=== PATIENT | male | born 1950 | race Caucasian/White ===

== ENCOUNTER 2025-05-28 10:15 | Outpatient (AMB) | payer BC, SELFPAY ==
--- NOTE | 2025-05-28 10:19 | MHC.OFFVIS ---
Vital Signs 05/28/25 10:22 Height 5 ft 4 in Weight 139 lb 6 oz BMI 23.9 BP 134/68 Blood Pressure Location Rt brachial Position Sitting Pulse 66 Pulse Source Pulse Oximeter Pulse Oximetry (%) 97 Oxygen Delivery Method Room Air Intake Visit Reasons: E-PATIENT FINANCIAL SPECIALIST: Tremors Intake Note: Tremors Account Manager Education Required: No Accompanied by: Spouse Allergies Seasonal Allergies Allergy (Verified 05/21/25 10:55) Wheezing HPI Comments Details: 74y/o male comes for evaluation of tremors and cognitive changes . He also has anxiety - for many years and is worsening in the past few years. He is on sertraline for 2 years now. No panic attacks . Tremors- hands - with posture . Anxiety worsens it . He is able to manage his ADLs. No voice tremors Cognition- his noticed problems 2 years ago and worse in the past few mths .He has trouble with dates , short term recall , difficulty multitasking , misplaces things, forgets where the things are in his house etc. He was adopted so does not know his family history . 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 History of pneumonia Chest pain Bronchitis Abnormal chest x-ray Surgical History S/P colectomy H/O arthroscopic knee surgery S/P cholecystectomy Family History Son DVT (deep venous thrombosis) Son Hypothyroidism Social History Alcohol intake: current Patient Tobacco Use Status: Former Tobacco user Tobacco use type: Cigarette Cigarette Packs Per Day: 0 Cigarettes Per Day: 0.8 Years Smoked: packs/day for 1.9 years Smoked in Last 30 Days: No Use of substances other than those prescribed or required for medical reasons: No Physical Exam Vital Signs: Last Vital Signs Pulse 66 05/28/25 10:22 BP 134/68 05/28/25 10:22 Pulse Ox 97 05/28/25 10:22 Oxygen Delivery Method Room Air 05/28/25 10:22 BMI result Body Mass Index 23.9 Const General: cooperative, healthy appearing, comfortable and anxious Nutritional Appearance: average body habitus Orientation/consciousness: patient oriented x3 Eyes Pupils: Equal, round and reactive pupils present Neck Neck: Yes no meningeal signs Neuro General: patient oriented x3, gait normal, moves all extremities, no meningeal signs and no focal motor deficits Cranial nerves: Yes Equal, round and reactive pupils present, Yes Bilaterally intact EOM present, Yes Nystagmus not present, Yes Normal facial strength present, Yes Midline tongue present, Yes Symmetric palate elevation present and Yes Ability to bilaterally elevate shoulders present Cognition (Neuro): normal cognition Gait exam (Neuro): Normal gait present Motor exam (neuro): 5/5 motor strength present throughout and Normal motor muscle tone present throughout Deep tendon reflexes (DTR's): Right triceps reflex intensity grade: 2+, Left triceps reflex intensity grade: 2+, Rt Biceps (C5, C6): 2+, Left biceps reflex intensity grade: 2+, Right brachioradialis reflex intensity grade: 2+, Left brachioradialis reflex intensity grade: 2+, Right patellar reflex intensity grade: 2+ and Left patellar reflex intensity grade: 2+ Coordination: [id number] test normal Orientation What is the (year) (season) (date) (day) (month)?: year, season, date, day and month Where are we (state) (county) (town or city) (hospital) (floor)?: state, county, town or city, hospital/clinic and floor Registration Name of 3 unrelated objects clearly and slowly, then ask patient to repeat all 3 of them. (1st repeat determines score. Make sure they can repeat all three): object 1, object 2 and object 3 Attention & Calculation (CHOOSE ONE) Spell WORLD backwards (DLROW): 5 letters Recall Ask patient to repeat the 3 items from question #3.: object 1 and object 2 Language Show patient a wristwatch & ask what it is. Repeat for pencil.: watch and pencil Ask the patient to repeat the phrase 'No ifs, ands, or buts' after you.: correct Ask the patient to 'take a piece of paper with their right hand' 'fold paper in half' 'place paper on floor': take paper in right hand, fold paper in half and place paper on floor Print the sentence 'CLOSE YOUR EYES' on a piece. If patient actually closes eyes then score.: followed written direction Give patient a blank piece of paper & ask to write a sentence. Score if it contains a noun & verb.: sentence contains subject and verb Score Score: 28 Assessment & Plan Assessment & Plan (1) Cognitive change: Comment: likely related to anxiety MMSE 29/30 Code(s): R41.89 - Other symptoms and signs involving cognitive functions and awareness Category: Medical (2) Coarse tremors: Comment: likely exaggerated physiological tremors Code(s): G25.2 - Other specified forms of tremor Category: Medical Plan MRI brain to r/o structural lesions I will trial him on Buspar 5 mg bid will consider beta blockers next visit Labs form PCP wear hearing aides consistently Orders: Orders MR head/brain wo con Today R41.3 - Other amnesia Medications: New buspirone 5 mg PO BID 60 tabs 6RF Coding Level of Care Code New Pt Level 4 (18662) Complex EM visit Add On G2211 Diagnoses Cognitive change R41.89 Coarse tremors G25.2
[2025-05-28 10:22] VITALS: BP 134/68; PULSE 66; O2SAT 97; BMI 23.9
--- OUTSIDE RECORDS SUMMARY | 2025-05-28 12:37 | XMS_ITS | Clinical Summary ---
Author Organization [facility] Address [address] [place] [phone] Phone Care Team Providers Care Cartridge Loader Name Role Phone Andre Gross MD Primary Care Provider [phone] Allergies Active Allergy Reactions Criticality Noted Date Comments Other Wheezing 01/06/2010 Seasonal allergies Medications fluticasone propionate (FLONASE) 50 mcg/actuation nasal spray 2 Sprays by Nasal route daily. 4 Active fluticasone-juanito meterol (ADVAIR DISKUS) 250-50 mcg/dose diskus inhaler Inhale 1 Puff into the lungs 2 times daily. 4 Active MULTIVITAMIN ORAL 1 po qd Active omega-3 acid ethyl esters (LOVAZA) 1 gram capsule Take by mouth daily. Active acetaminophen (TYLENOL) 500 mg tablet Take 2 tablets (1,000 mg total) by mouth every 6 (six) hours if needed for mild pain. 60 tablet 5 Active ibuprofen (ADVIL,MOTRIN) 600 mg tablet Take 1 tablet (600 mg total) by mouth every 8 (eight) hours if needed for mild pain. 60 tablet 5 Active oxyCODONE (ROXICODONE) 5 mg immediate release tabletIndicatio ns:Right inguinal hernia Take 1 tablet (5 mg total) by mouth every 6 (six) hours if needed for severe pain. Max Daily Amount: 20 mg 18 tablet 5 Active montelukast (SINGULAIR) 10 mg tablet TAKE 1 TABLET BY MOUTH AT BEDTIME 90 tablet 1 5 Active donepeziL (ARICEPT) 5 mg tablet TAKE 1 TABLET BY MOUTH AT BEDTIME 90 tablet 5 Active cetirizine (ZyrTEC) 10 mg tablet Take 1 tablet (10 mg total) by mouth 1 (one) time each day. 90 tablet 5 Active amLODIPine (NORVASC) 5 mg tablet Take 1 tablet (5 mg total) by mouth 1 (one) time each day. 90 tablet 1 5 Active sertraline (ZOLOFT) 100 mg tablet Take 1 tablet (100 mg total) by mouth 1 (one) time each day. 30 tablet 1 5 Active atorvastatin (LIPITOR) 10 mg tablet Take 1 tablet (10 mg total) by mouth 1 (one) time each day. 90 tablet 1 5 Active amLODIPine (NORVASC) 5 mg tablet Take 1 Tablet by mouth daily. 4 05/08/20 25 Discontinu ed(Reorder ) sertraline (ZOLOFT) 100 mg tablet TAKE 1 TABLET BY MOUTH 1 TIME EACH DAY. 30 tablet 1 5 05/08/20 25 Discontinu ed(Reorder ) atorvastatin (LIPITOR) 10 mg tablet TAKE 1 TABLET BY MOUTH DAILY 90 tablet 1 5 05/08/20 25 Discontinu ed(Reorder ) Active Problems Problem Noted Date Diagnosed Date Right inguinal hernia 10/01/2024 Positive colorectal cancer screening using Colog uard test 06/16/2023 Overview (07/25/2024): (-) colonoscopy 2022, repeat recommended by GI in 5 years, 2027 Memory deficit 11/04/2022 Overview (07/25/2024): see note 11/03/22, initiated treatment for presumed Alzheimer's disease Decreased hearing of right ear 08/01/2021 Tinnitus aurium, right 08/01/2021 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 Cordova Essential hypertension 08/26/2016 Prediabetes 06/28/2016 Assessment & Plan (11/20/2024 8:00 AM EDT): Orders: Hemoglobin A1c; Future Hyperglycemia 02/26/2016 Bronchitis 10/20/2009 Abnormal CXR 06/08/2009 Overview (07/25/2024): S/p biopsy, r/o TB, sarcoidosis GERD (gastroesophageal reflux disease) 7 Overview (07/25/2024): Failed h2 abdias, back on PPI 12/2018 Mixed hyperlipidemia 05/08/2007 External hemorrhoids 05/04/2007 Overview (07/25/2024): IMO update Diverticulitis of colon without hemorrhage 07/07 Overview (07/25/2024): noted at colonoscopy .3.06. Surgical resection 2011. Spermatocele 03/29/2006 Chest pain, unspecified 09/01/2005 Overview (07/25/2024): ETT (-) 02/05 Encounters Date Type Department Care Team Description 05/08/2025 8:45 AM EDT Office Visit Adult Medicine [facility] [place] [address] [place] [phone] Andre Gross MD Elevated PSA (Primary Dx); Generalized anxiety disorder; Memory deficit; Hyperglycemia; Essential hypertension; Low energy; Lack of interest 05/06/2025 Telephone Adult Medicine [facility] [place] [address] [place] [address] Andre Gross MD from Last 3 Months Immunizations Name Administration Dates Next Due Influenza Quadravalent, MDCK , 0.5ml, preservative free (Flucelvax) 6mo and older 10/31/2019 Influenza trivalent, 0.5mL ( Fluad) 65yo and older 06/08/2022,05/21/2020,06/11/2018 Influenza trivalent, 0.5mL, preservative free (Fluarix; FluLaval; Fluzone) ages 6mo and older (Afluria) 3 years and older 08/25/2016,06/30/2010,07/06/2009 Influenza, Unspecified 1952 Moderna SARS-CoV-2 COVID-19, mRNA, LNP-S, preservative free 07/14/2021 PPD Test 06/04/2009 Td Tetanus diptheria (Tdvax) 7yo and older 08/11 Tdap Tetanus diptheria acell ular pertussis (Boostrix; Adacel) 7yo and older 03/28/2012 Zoster Live 10/02/2015 Surgical History Surgery Date Site/Laterality Comments KNEE ARTHROSCOPY W/ MENISCAL REPAIR 2001 PROCEDURE: [place] ARTHROSCOPY KNEE W/MENISCUS RPR MEDIAL/LATERAL; COMMENT: unknown knee surg COLONOSCOPY 07/07/2006 PROCEDURE: HISTORICAL COLONOSCOPY; COMMENT: diminutive tubular adenoma x 1. CHOLECYSTECTOMY 01/2010 PROCEDURE: LAPAROSCOPIC CHOLECYSTECT COLONOSCOPY 08/08/2011 PROCEDURE: HISTORICAL COLONOSCOPY; COMMENT: no polyps OTHER SURGICAL HISTORY 06/10/2012 PROCEDURE: [place] COLECTOMY PARTIAL W/ANASTOMOSIS; COMMENT: colon resection and temp colostomy for diverticulitis. COLONOSCOPY 08/08/2016 PROCEDURE: HISTORICAL COLONOSCOPY; COMMENT: 5 mm polyp at 20 cm: Nonneoplastic inflammation. OTHER SURGICAL HISTORY PROCEDURE: HISTORICAL CA BASAL CELL; COMMENT: BCC 10/19 right gnosticism (nodular) Medical History Medical History Date Comments Hematuria DX:Hematuria Closed fracture of unspecifi ed part of tibia 07/15/2002 DX:Closed fracture of unspec ified part of tibia; COMMENT: sports injury (hockey) Chest pain, unspecified DX:Chest pain, unspecified Esophageal reflux 1990 DX:Esophageal reflux; COMMENT: H pylori (+) fully treated Spermatocele 03/29/2006 DX:Spermatocele Diverticulosis of colon (wit hout mention of hemorrhage) 07/07/2006 DX:Diverticulosis of colon ( without mention of hemorrhage); COMMENT: noted at colonoscopy 06 Benign neoplasm of colon 07/07/2006 DX:Joshua gn neoplasm of colon; COMMENT: diminutive sigmoid colon polyp at colonoscopy .11.07 Personal history of peptic u lcer disease 09/01/2005 DX:Personal history of pepti c ulcer disease; COMMENT: h pylori (+) Personal history of colonic polyps 01/03/2007 DX:Personal history of colonic polyps External hemorrhoids without mention of complication 05/04/2007 DX:External hemorrhoids with out mention of complication Mixed hyperlipidemia 05/08/2007 DX:Mixed hy perlipidemia Abnormal CXR 06/08/2009 DX:Abnormal CXR Hyperglycemia 02/26/2016 DX:Hyperglycemia History of basal cell carcin court of skin 10/09/2014 DX:History of basal cell car cinoma of skin; COMMENT: BCC 10/19 right gnosticism (nodular) Prediabetes 06/28/2016 DX:Prediabetes Essential hypertension 08/26/2016 DX:Essent ial hypertension Elevated PSA 04/16/2018 DX:Elevated PSA; COMMENT: Follows with Dr. Cordova GERD (gastroesophageal reflu x disease) 09/03/2007 DX:GERD (gastroesophageal re flux disease); COMMENT: Failed h2 abdias, back on PPI 12/2018 History of actinic keratoses 06/12/2020 DX: History of actinic keratoses Malignant neoplasm of skin of face DX:Malignant neoplasm of skin of face Change in weight DX:Change in we ight Family History Medical History Relation Name Comments Other: DVT Son 1 no hyper-coagul atory state, after extensive eval. Other: hypothyroidism Son 2 Hashim kristie's disease Relation Name Status Comments Son 1 Son 2 Social History Tobacco Use Types Packs/Day Years Used Date Smoking Tobacco: Former Cigarettes 0.8 1.9 0 1974 - 09/04/1976 Smokeless Tobacco: Never Tobacco Cessation:Counseling Given: Not Answered Alcohol Use Standard Drinks/Week Comments Yes 0 (1 standard drink = 0.6 oz pur e alcohol) Interpersonal Safety Answer Date Record ed Physical Abuse 12/12/2024 Verbal Abuse 12/12/2024 Sex and Gender Information Value Date Recorded Sex Assigned at Male 10/21/2024 2:23 PM EST Legal Sex Male 9:21 AM EST Gender Identity Male 10/21/2024 2:23 PM EST Sexual Orientation Straight 10/21/2024 2: 23 PM EST Obstetrics History Last Filed Vital Signs Vital Sign Reading Time Taken Comments Blood Pressure 133/55 05/08/2025 8:40 AM EDT Pulse 60 05/08/2025 8:40 AM EDT Temperature 36.5 C (97.7 F) 05/08/2025 8:39 AM EDT Respiratory Rate 15 05/08/2025 8:39 AM EDT Oxygen Saturation 94% 12/12/2024 4:40 PM EDT Inhaled Oxygen Concentration - - Weight 64 kg (141 lb) 05/08/2025 8:39 AM EDT Height 162.6 cm (5' 4 ) 12/25/2024 9:31 AM EDT Body Mass Index 24.2 12/25/2024 9:31 AM EDT Plan of Treatment Upcoming Encounters Date Type Department Care Team (Late st Contact Info) Description 06/04/2025 9:15 AM EDT Office Visit General Surgery - [place] [address] [place] [phone] Kolby Brown, [address] [place] [address] [place] [phone] 08/14/2025 3:00 PM EST Office Visit Adult Medicine [facility] [place] [address] [place] [phone] Andre Gross MD [address] [place] [address] Health Maintenance Due Date Last Done Comments Pneumococcal Vaccine: 50+ Years (1 of 1 - PCV) 2002 Zoster Vaccines (1 of 2) 11/27/2015 10/02/2015 DTaP,Tdap,and Td Vaccines (3 - Td or Tdap) 03/28/2022 03/28/2012, 08/11/2003 Abdominal Aortic Aneurysm (AAA) Screen 08/13/2022 Social Influencers of Health Screening 08/13/2022 COVID-19 Vaccine ( - season) 2025 07/14/2021, 11/01/2020, 10/04/2020 Influenza Vaccine (#1) 2025 , 06/08/2022, 07/14/2021, Additional history exists Medicare Annual Wellness Visit 11/19/2025 11/19/2024 Falls Risk Assessment 12/12/2025 12/12/2024, 025 Hypertension/CHF/CAD Annual BMP Blood Test 05/12/2026 05/12/2025, 07/14/2023 RSV Immunization Adult Patients (1 - 1-dose 75+ series) 2027 Cholesterol Screening (Lipid Panel) 05/12/2030 05/12/2025, 09/19/2022 Colorectal Cancer Screening: Colonoscopy 06/15/2033 06/15/2023 Hepatitis C Screening Completed 10/03/2015 Depression Screening Completed 11/19/2024 HIB Vaccines Aged Out No longer eligi ble based on patient's age to complete this topic HPV Vaccines Aged Out No longer eligi ble based on patient's age to complete this topic Hepatitis A Vaccines Aged Out No long er eligible based on patient's age to complete this topic Hepatitis B Vaccines Aged Out No long er eligible based on patient's age to complete this topic IPV Vaccines Aged Out No longer eligi ble based on patient's age to complete this topic MMR Vaccines Aged Out No longer eligi ble based on patient's age to complete this topic Meningococcal ACWY Vaccine Aged Out N o longer eligible based on patient's age to complete this topic Meningococcal B Vaccine Aged Out No l onger eligible based on patient's age to complete this topic RSV Immunization Patients Under 20 months Aged Out No longer eligible based on patient's age to complete this topic Varicella Vaccines Aged Out No longer eligible based on patient's age to complete this topic Medical Devices Implanted Type Area Rod Filler Device Identifier Shelf Expiration Date Model / Serial / Lot Mesh 3dmax Lght Lg 4.1x6.2 R 4.1x6.2in - [id number] - [id number] Implanted:Qty: 1 on 12/12/2024 by Kolby Brown, DO at [facility] Surgical Mesh Sling Implants Right: Abdomen CR BARD - DAVOL DIV 03/31/2029 [id number] / [id number] / [id number] Procedures Procedure Name Priority Date/Time Associated Diagnosis Comments TRIIODOTHYRONINE FREE Routine 05/12/2025 8:24 AM EDT Tremor Alzheimer's dementia of other onset, with anxiety, unspecified dementia severity (CMS/HCC V24, [facility] V28) FREE THYROXINE WITH REFLEX TO FREE TRIIODOTHYRONINE Routine 05/12/2025 8:24 AM EDT Tremor Alzheimer's dementia of other onset, with anxiety, unspecified dementia severity (CMS/HCC V24, CMS/HCC V28) CBC WITH AUTO DIFFERENTIAL Routine 05/12/2025 8:24 AM EDT Tremor Alzheimer's dementia of other onset, with anxiety, unspecified dementia severity (CMS/HCC V24, CMS/HCC V28) LIPID PANEL WITH REFLEX TO DIRECT LDL Routine 05/12/2025 8:24 AM EDT Mixed hyperlipidemia THYROID STIMULATING HORMONE WITH REFLEX TO FREE T4 AND FREE T3 Routine 05/12/2025 8:24 AM EDT Tremor Alzheimer's dementia of other onset, with anxiety, unspecified dementia severity (CMS/HCC V24, CMS/HCC V28) COMPREHENSIVE METABOLIC PANEL Routine 05/12/2025 8:24 AM EDT Tremor Alzheimer's dementia of other onset, with anxiety, unspecified dementia severity (CMS/HCC V24, CMS/HCC V28) CBC AND DIFFERENTIAL Routine 05/12/2025 8:24 AM EDT Tremor Alzheimer's dementia of other onset, with anxiety, unspecified dementia severity (CMS/HCC V24, CMS/HCC V28) HEMOGLOBIN A1C Routine 05/12/2025 8:24 AM EDT Prediabetes HM COLONOSCOPY Routine 06/15/2023 HEPATITIS C SCREENING Routine 10/03/2015 from Last 3 Months or Most Recently Relevant to Health Maintenance Results * (ABNORMAL) Thyroid stimulating hormone with reflex to free t4 and free t3 (05/12/2025 8:24 AM EDT) TSH 6.63(H) 0.40 - 4.00 mcIU/mL LAB CHEMISTRY METHOD 05/12/2025 11:14 AM EDT [facility] Blood Venous blood specimen / Unknown Venipuncture / Unknown 05/12/2025 8:24 AM EDT 05/12/2025 8:24 AM EDT us Andre Gross MD LAB BLOOD ORDERABLES Final Resul t Performing Organization Address [facility]/ZIP Co de Phone Number [facility] [address] [place] [address], [place] [phone] * Free thyroxine with reflex to free triiodothyronine (05/12/2025 8:24 AM EDT) Free T4 1.04 0.70 - 1.80 ng/dL LAB CHEMISTRY METHOD 05/12/2025 11:34 AM EDT [facility] Blood Venous blood specimen / Unknown Venipuncture / Unknown 05/12/2025 8:24 AM EDT 05/12/2025 8:24 AM EDT us Andre Gross MD LAB BLOOD ORDERABLES Final Resul t Performing Organization Address [facility] Co de Phone Number [facility] [address] [place] [address], [place] [phone] * (ABNORMAL) Lipid panel with reflex to direct LDL (05/12/2025 8:24 AM EDT) Cholesterol 220(H) 0 - 200 mg/dL LAB CHEMISTRY METHOD 05/12/2025 10:42 AM EDT [facility] Triglycerides 106 0 - 150 mg/dL LAB CHEMISTRY METHOD 05/12/2025 10:42 AM EDT [facility] HDL 42 >=40 mg/dL LAB CHEMISTRY METHOD 05/12/2025 10:42 AM EDT [facility] LDL Calculated 157(H) 0 - 100 mg/dL LAB CHEMISTRY METHOD 05/12/2025 10:42 AM EDT [facility] Comment:Estimated LDL Calcul ated using equation: Total cholesterol - HDL cholesterol - (Triglycerides/5) VLDL Cholesterol Zackary 21.2 mg/dL LAB CHEMISTRY METHOD 05/12/2025 10:[facility] Non HDL Chol. (LDL+VLDL) 178(H) <145 mg/dL LAB CHEMISTRY METHOD 05/12/2025 10:42 AM [facility] Chol/HDL Ratio 5.2(H) 0.0 - 4.4 LAB CHEMISTRY METHOD 05/12/2025 10:42 AM [facility] Blood Venous blood specimen / Unknown Venipuncture / Unknown 05/12/2025 8:24 AM EDT 05/12/2025 8:24 AM EDT us Andre Gross MD LAB BLOOD ORDERABLES Final Resul t [facility] [address] [place] [address], [place] [phone] * (ABNORMAL) CBC auto differential (05/12/2025 8:24 AM EDT) WBC 5.2 4.8 - 10.8 K/mcL LAB HEMETOLOGY METHOD 05/12/2025 10:24 AM [facility] RBC 4.50 4.50 - 5.50 M/mcL LAB HEMETOLOGY METHOD 05/12/2025 10:24 AM [facility] Hemoglobin 14.5 13.5 - 17.5 g/dL LAB HEMETOLOGY METHOD 05/12/2025 10:24 AM [facility] Hematocrit 43.2 42.0 - 54.0 % LAB HEMETOLOGY METHOD 05/12/2025 10:24 AM [facility] MCV 96.9 79.0 - 98.0 FL LAB HEMETOLOGY METHOD 05/12/2025 10:24 AM [facility] MCH 32.5(H) 27.0 - 32.0 pcg LAB HEMETOLOGY METHOD 05/12/2025 10:24 AM [facility] MCHC 33.6 32.0 - 37.0 g/dL LAB HEMETOLOGY METHOD 05/12/2025 10:24 AM [facility] RDW 12.7 11.0 - 15.0 % LAB HEMETOLOGY METHOD 05/12/2025 10:24 AM [facility] Platelets 230 130 - 400 K/mcL LAB HEMETOLOGY METHOD 05/12/2025 10:24 AM [facility] MPV 10.2 7.0 - 11.0 FL LAB HEMETOLOGY METHOD 05/12/2025 10:24 AM [facility] NRBC 0.0 <1.0 % LAB HEMETOLOGY METHOD 05/12/2025 10:24 AM [facility] NRBC Absolute 0.00 <0.10 K/mcL LAB HEMETOLOGY METHOD 05/12/2025 10:24 AM [facility] Neutrophils Relative 55.8 % LAB HEMETOLOGY METHOD 05/12/2025 10:24 AM [facility] Lymphocytes Relative 25.7 % LAB HEMETOLOGY METHOD 05/12/2025 10:24 AM [facility] Monocytes Relative 11.3 % LAB HEMETOLOGY METHOD 05/12/2025 10:24 AM [facility] Eosinophils Relative 5.6 % LAB HEMETOLOGY METHOD 05/12/2025 10:24 AM [facility] Basophils Relative 1.0 % LAB HEMETOLOGY METHOD 05/12/2025 10:24 AM [facility] Immature Granulocytes Relative 0.6 % LAB HEMETOLOGY METHOD 05/12/2025 10:24 AM [facility] Neutrophils Absolute 2.91 1.50 - 7.00 K/mcL LAB HEMETOLOGY METHOD 05/12/2025 10:24 AM [facility] Lymphocytes Absolute 1.34 1.00 - 5.00 K/mcL LAB HEMETOLOGY METHOD 05/12/2025 10:24 AM EDT [facility] Monocytes Absolute 0.59 0.20 - 1.00 K/[facility] LAB HEMETOLOGY METHOD 05/12/2025 10:24 AM EDT [facility] Eosinophils Absolute 0.29 0.00 - 0.50 K/[facility] LAB HEMETOLOGY METHOD 05/12/2025 10:24 AM EDT [facility] Basophils Absolute 0.05 0.00 - 0.20 K/[facility] LAB HEMETOLOGY METHOD 05/12/2025 10:24 AM EDT [facility] Immature Granulocytes Absolute 0.03 0.00 - 0.03 K/[facility] LAB HEMETOLOGY METHOD 05/12/2025 10:24 AM EDT [facility] Blood Venous blood specimen / Unknown Venipuncture / Unknown 05/12/2025 8:24 AM EDT 05/12/2025 8:24 AM EDT us Andre Gross MD LAB BLOOD ORDERABLES Final Resul t Performing Organization Address City/[facility]/ZIP Co de Phone Number [facility] [address] [place] [address], [place] [phone] * Triiodothyronine free (05/12/2025 8:24 AM EDT) T3, Free 329 230 - 420 pcg/dL LAB CHEMISTRY METHOD 05/12/2025 12:35 PM EDT [facility] Blood Venous blood specimen / Unknown Venipuncture / Unknown 05/12/2025 8:24 AM EDT 05/12/2025 8:24 AM EDT us Andre Gross MD LAB BLOOD ORDERABLES Final Resul t [facility] [address] [place] [address], [place] [phone] * Hemoglobin A1c (05/12/2025 8:24 AM EDT) Pathologist [facility] Hemoglobin A1C 6.4 <6.5 % LAB CHEMISTRY METHOD 05/12/2025 12:27 PM EDT [facility] Mean Bld Glu Estim. 137 mg/dL LAB CHEMISTRY METHOD 05/12/2025 12:27 PM EDT [facility] Blood Venous blood specimen / Unknown Venipuncture / Unknown 05/12/2025 8:24 AM EDT 05/12/2025 8:24 AM EDT Andre Gross MD LAB BLOOD ORDERABLES Final Resul t [facility] [address] [place] [address], * (ABNORMAL) Comprehensive metabolic panel (05/12/2025 8:24 AM EDT) [facility] Sodium 139 133 - 145 mmol/L LAB CHEMISTRY METHOD 05/12/2025 10:42 AM [facility] Potassium 4.2 3.5 - 5.5 mmol/L LAB CHEMISTRY METHOD 05/12/2025 10:42 AM [facility] Chloride 104 96 - 110 mmol/L LAB CHEMISTRY METHOD 05/12/2025 10:42 AM [facility] CO2 29 21 - 32 mmol/L LAB CHEMISTRY METHOD 05/12/2025 10:42 AM [facility] Anion Gap 6 3 - 11 LAB CHEMISTRY METHOD 05/12/2025 10:42 AM [facility] Glucose 144(H) 70 - 100 mg/dL LAB CHEMISTRY METHOD 05/12/2025 10:42 AM [facility] BUN 15 5 - 25 mg/dL LAB CHEMISTRY METHOD 05/12/2025 10:42 AM [facility] Creatinine 0.91 0.70 - 1.30 mg/dL LAB CHEMISTRY METHOD 05/12/2025 10:42 AM [facility] eGFR 90 >=60 mL/min/1. 73m2 LAB CHEMISTRY METHOD 05/12/2025 10:42 AM [facility] Comment:Calculation based on the Chronic Kidney Disease Epidemiology Collaboration (CKD-EPI) equation refit without adjustment for race. BUN/Creatinine Ratio 16.5 LAB CHEMISTRY METHOD 05/12/2025 10:42 AM [facility] Calcium 9.2 8.5 - 10.5 mg/dL LAB CHEMISTRY METHOD 05/12/2025 10:42 AM [facility] AST (SGOT) 18 10 - 42 unit/L LAB CHEMISTRY METHOD 05/12/2025 10:42 AM [facility] ALT (SGPT) 27 10 - 60 unit/L LAB CHEMISTRY METHOD 05/12/2025 10:42 AM [facility] Alkaline Phosphatase 81 42 - 121 unit/L LAB CHEMISTRY METHOD 05/12/2025 10:42 AM [facility] Total Protein 6.6 6.0 - 8.0 g/dL LAB CHEMISTRY METHOD 05/12/2025 10:42 AM [facility] Albumin 3.9 3.2 - 5.0 g/dL LAB CHEMISTRY METHOD 05/12/2025 10:42 AM [facility] Total Bilirubin 0.5 0.0 - 1.4 mg/dL LAB CHEMISTRY METHOD 05/12/2025 10:42 AM [facility] Blood Venous blood specimen / Unknown Venipuncture / Unknown 05/12/2025 8:24 AM EDT 05/12/2025 8:24 AM EDT us Andre Gross MD LAB BLOOD ORDERABLES Final Resul t [facility] [address] [place] [address], [place] [phone] * Colonoscopy (06/15/2023) Pathologist [facility] Colonoscopy abstracted, no interpretation Anatomical Region Laterality Modality Other Historical Provider HEALTH MAINTENANCE Final Result * Hepatitis C Screening (10/03/2015) Pathologist [facility] Hepatitis C Screening abstracted Historical Provider HEALTH MAINTENANCE Final Result from Last 3 Months or Most Recently Relevant to Health Maintenance Insurance [employer] - [place] MEDICARE ADVANTAGE Advance Directives * Full Code - Default (Latest Code Status on File) Date Activated Date Inactivated Comments 12/12/2024 10:07 AM 12/12/2024 8:43 PM This is ord er is used when code status has not been discussed with the patient, or code status is otherwise unknown/unconfirmed To update the patient's code status, place a code status order. Do not modify or discontinue any currently active code status orders. Care Teams Cartridge Loader Relationship Specialty Start Date End Date Andre Gross MD [address] [place] [address] [place] [address] PCP - General 05/13/00
--- OUTSIDE RECORDS SUMMARY | 2025-05-28 12:37 | XMS_ITS | Encounter Summary ---
Author Organization [facility] Address [address] [place] [address] Care Team Providers Care Java J2Ee Software Engineer Name Role Phone Andre Gross MD Primary Care Provider [phone] Encounter Details Date Type Department Care Team (Late Contact Info) Description 01/21/2025 Lab Requisition [facility] - Main Lab [address] [facility] [place] [address] Bryson Ramirez MD [address] [facility] [address] [place] [phone] Elevated prostate specific antigen (PSA) Social History Tobacco Use Types Packs/Day Years Used Date Smoking Tobacco: Former Cigarettes 0.8 1.9 0 1974 - 09/04/1976 Smokeless Tobacco: Never Alcohol Use Standard Drinks/Week Comments Yes 0 [...] Orientation Straight 10/21/2024 2: 23 PM EST documented as of this encounter Plan of Treatment Upcoming Encounters Date Type Department Care Team (Late Contact Info) Description 06/04/2025 9:15 AM EDT Office Visit General Surgery - [place] [address] [place] [address] Kolby Brown, DO [address] [facility] [address] [place] [address] 08/14/2025 3:00 PM EST Office Visit Adult [facility] [address] [place] [address] Andre Gross MD [address] [place] [address] documented as of this encounter Procedures Procedure Name Priority Date/Time Associated Diagnosis Comments AP OUTSIDE CONSULT Routine 01/16/2025 Elevated prostate specific antigen (PSA) documented in this encounter Results * Anatomic pathology outside consult (01/16/2025) Final Diagnosis A. Prostate, Left Mid [place] Biopsy: - Prostatic acinar adenocarcinoma (conventional type), grade group 1 (Asif score 3+3=6). - Tumor continuously involves 2% of 1 of 1 tissue core. Note: PIN4 stain was performed to determine the nature of a proliferation of crowded small glands and shows that the glands of interest stain negative for basal cell markers, supporting the above diagnosis. PIN4 immunostain performed at [facility] lab, [address], [place] [address], CLIA #[id number] B. Prostate, Left Lat [place] Biopsy: - Benign prostatic tissue. C. Prostate, Left Mid Mid Biopsy: - Benign prostatic tissue. D. Prostate, Left Lat Mid Biopsy: - Benign prostatic tissue. E. Prostate, Left Mid Base Biopsy: - Benign prostatic tissue. F. Prostate, Left Lat Base Biopsy: - Benign prostatic tissue. G. Prostate, Right Mid [place] Biopsy: - Benign prostatic tissue. H. Prostate, Right Lat [place] Biopsy: - Benign stroma and benign prostatic tissue. I. Prostate, Right Mid Mid Biopsy: - Benign prostatic tissue. J. Prostate, Right Lat Mid Biopsy: - Benign prostatic tissue. K. Prostate, Right Mid Base Biopsy: - Benign prostatic tissue. L. Prostate, Right Lat Base Biopsy: - Benign prostatic tissue. 01/28/2025 5:02 PM EDT [facility] HOSPITAL LAB Clinical Information Elevated PSA Last PSA total = 7.5 (11/08/2024) PSA free: 1.29 (11/08/2024) [id number] 01/28/2025 5:02 PM T [facility] Gross Description A. Prostate, Left Mid [place] Biopsy: Received, properly labeled, are two H and E stained slides and two unstained slides. B. Prostate, Left Lat [place] Biopsy: Received, properly labeled, are two H and E stained slides and two unstained slides. C. Prostate, Left Mid Mid Biopsy: Received, properly labeled, are two H and E stained slides and two unstained slides. D. Prostate, Left Lat Mid Biopsy: Received, properly labeled, are two H and E stained slides and two unstained slides. E. Prostate, Left Mid Base Biopsy: Received, properly labeled, are two H and E stained slides and two unstained slides. F. Prostate, Left Lat Base Biopsy: Received, properly labeled, are two H and E stained slides and two unstained slides. G. Prostate, Right Mid [place] Biopsy: Received, properly labeled, are two H and E stained slides and two unstained slides. H. Prostate, Right Lat [place] Biopsy: Received, properly labeled, are two H and E stained slides and two unstained slides. I. Prostate, Right Mid Mid Biopsy: Received, properly labeled, are two H and E stained slides and two unstained slides. J. Prostate, Right Lat Mid Biopsy: Received, properly labeled, are two H and E stained slides and two unstained slides. K. Prostate, Right Mid Base Biopsy: Received, properly labeled, are two H and E stained slides and two unstained slides. L. Prostate, Right Lat Base Biopsy: Received, properly labeled, are two H and E stained slides and two unstained slides. /al 01/28/2025 5:02 PM T [facility] Disclaimer Unless otherwise specified, all tissue is 10% NB formalin fixed and paraffin embedded. Technical pathology services provided by [facility] at [address], [place] [address] (CLIA #[id number]/Brooklynn Cook MD, Wire Stitcher Machine) 01/28/2025 5:02 PM EDT [facility] Tissue Prostate / Unknown 01/16/20252024 9:22 AM EDT Tissue specimen (specimen) Prostate / Unknown 01/16/2025 01/21/2025 9: 22 AM EDT Tissue specimen (specimen) Prostate / Unknown 01/16/2025 01/21/2025 9: 22 AM EDT Tissue specimen (specimen) Prostate / Unknown 01/16/2025 01/21/2025 9: 22 AM EDT Tissue specimen (specimen) Prostate / Unknown 01/16/2025 01/21/2025 9: 22 AM EDT Tissue specimen (specimen) Prostate / Unknown 01/16/2025 01/21/2025 9: 22 AM EDT Tissue specimen (specimen) Prostate / Unknown 01/16/2025 01/21/2025 9: 22 AM EDT Tissue specimen (specimen) Prostate / Unknown 01/16/2025 01/21/2025 9: 22 AM EDT Tissue specimen (specimen) Prostate / Unknown 01/16/2025 01/21/2025 9: 22 AM EDT Tissue specimen (specimen) Prostate / Unknown 01/16/2025 01/21/2025 9: 22 AM EDT Tissue specimen (specimen) Prostate / Unknown 01/16/2025 01/21/2025 9: 22 AM EDT Tissue specimen (specimen) Prostate / Unknown 01/16/2025 01/21/2025 9: 22 AM EDT Bryson Ramirez MD LAB PATHOLOGY ORDERABLES Final Result [facility]) [facility] [address] [place] [address], documented in this encounter Visit Diagnoses Diagnosis Elevated prostate specific antigen (PSA) documented in this encounter Additional Health Concerns Assessment Noted Time PHQ-9 Depression Total Score: 0 11/20/19 11:36 AM EDT A fall risk assessment has been complete d for the patient 11/19/2024 11:35 AM EDT documented as of this encounter Care Teams Java J2Ee Software Engineer Relationship Specialty Start Date End Date Andre Gross MD [address] [place] [address] PCP - General 05/13/00 documented as of this encounter
--- OUTSIDE RECORDS SUMMARY | 2025-05-28 12:38 | XMS_ITS | Patient Health Record ---
Author Organization [facility] Address [address] [facility] [address] [place] [address] Care Team Providers Care Outboard Motor Mechanic Name Role Phone Andre Gross Primary Care Provider Unavailabl e Allergies Allergen (clinical drug ingredient) Drug/Non Drug Allergy documented on EMR Reaction Allergy Type Onset Date Status Seasonale Unknown Drug Allergy Active Reason For Referral No Information Medications Medication SIG (Take, Route, Frequency, Duration) Notes Start Date End Date Status hydrOXYzine HCl 25 MG 1 tablet as needed Orally every 8 hrs; Duration: 10 day(s) 09/07/2020 Active Albuterol Sulfate 108 (90 Base) MCG/ACT 1 puff as needed Inhalation every 4 hrs Active Multivitamin Active amLODIPine Besylate 5 MG 1 tablet Orally Once a day Active Advair Diskus Active Nystatin-Triamcinolone 391633-6.1 UNIT/GM 1 application Externally Twice a day Active [place]-3 & [place]-6 Fish Oil Active Cetirizine HCl 10 MG 1 tablet Orally Onc e a day Active Montelukast Sodium 10 MG 1 tablet Orally Once a day Active Pantoprazole Sodium 20 MG 1 tablet Orall y Once a day Active Nasal [place] Active Problems Problem Type SNOMED Code ICD Code Onset Dates Problem Status W/U Status Risk Notes Problem Acquired hammer toe of right foot (7722669530272240) Hammer toe of right foot (M20.41) Active confirmed Problem Hallux valgus of right foot (6738179133) Hallux valgus of right foot (M20.11) Active confirmed Problem Localized, primary osteoarthritis of the ankle and/or foot (381594150) Arthritis, 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) Active confirmed Problem Right metatarsus adductus (disorder) (68594177829011431 ) 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 Plan Of Treatment Pending Test Test Name Order Date X ray : Foot, right 3v 09/18/2020 X ray : Foot, right 3v 10/16/2020 X ray : Foot, right 3v 11/13/2020 Insurance Providers Payer Name Payer Address Payer Phone Subscriber Number Group Number Insured Name Patient Relationship to Insured Coverage Start Date Coverage End Date [facility] [address] [address] [place] [address] [phone] [id number] DixonJoseph Self - patient is the insured [employer] [place] [address] [place] [phone] [id number] Joseph Dixon Self - patient is the insured Medical (General) History Medical History History ICD Code Generalized anxiety disorder F41.1 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 Elevated prostate specific antigen [PSA] R97.20 Essential hypertension I10 Prediabetes R73.03 Hyperglycemia, unspecified R73.9 Personal history of other malignant neop lasm of skin Z85.828 Bronchitis, not specified as acute or ch ronic J40 Gastro-esophageal reflux disease without esophagitis K21.9 Mixed hyperlipidemia E78.2 Personal history of colonic polyps Z86.0 10 Diverticulitis of large inte hubert without perforation or abscess without bleeding K57.32 Spermatocele of epididymis, unspecified N43.40 Personal history of peptic ulcer disease Z87.11 Chest pain, unspecified R07.9 Surgical History Surgery Date(Month/Year) 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
== END 2025-05-28 11:00 | disposition home or self-care (01) ==
LOC: HO.HSMS 10:15
PROVIDERS: PCP Internal Medicine; Visit Provider Psychiatry & Neurology Neurology
DX: R41.89 Other symptoms and signs involving cognitive functions and awareness (principal); G25.2 Other specified forms of tremor
CPT/HCPCS: 99204

== ENCOUNTER → 2025-07-20 09:33 | Outpatient (BNV) | payer BC, SELFPAY | PROVIDERS: PCP Internal Medicine; Visit Provider Radiology Diagnostic Radiology | DX: G31.9 Degenerative disease of nervous system, unspecified (principal) | CPT/HCPCS: 70551 ==

== ENCOUNTER 2025-07-20 09:34 | Outpatient (REF) | payer BC, SELFPAY ==
--- NOTE | ~2025-07-20 | MR_ITS ---
EXAMINATION: MR BRAIN WITHOUT CONTRAST CLINICAL INFORMATION: R 41.3. COMPARISON: None available. TECHNIQUE: MRI of the brain was obtained using routine sequences without contrast. FINDINGS: No restricted diffusion. No acute intracranial hemorrhage, mass effect, midline shift, hydrocephalus or herniation. Small focal susceptibility signal, left frontal lobe. Vascular morphology susceptibility signal left cerebellum/dentate nucleus to the left cerebellopontine angle cistern. Bilateral multifocal patchy and punctate deep periventricular white matter and subcortical white matter hyperintense T2 FLAIR signal involving centrum semiovale and monae radiata. 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 Linear hyperintense T2 FLAIR signal in the mid zoraida likely wallerian degeneration. Prominent perivascular spaces below the basal ganglia. Prominence of the extra-axial CSF spaces cerebral sulci and ventricles likely central volume loss. Prominent temporal horns lateral ventricles likely related to volume loss in the hippocampi. Flow-void signal within the main cerebral vessels is normal. Sellar/suprasellar region is normal. Craniocervical junction is intact with a pannus formation in the periodontal C1 region. Normal position of the cerebellar tonsils.. MR/MR head/brain wo con IMPRESSION: Global cerebral atrophy with the likely volume loss in the hippocampi. Extensive white matter disease/leukoaraiosis. 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 Electronically signed by: Gabriel Goodrich MD 07/21/2025 07:05 AM [facility]
== END 2025-07-20 09:35 | disposition home or self-care (01) ==
LOC: HO.MRI 09:34
PROVIDERS: PCP Internal Medicine; Visit Provider Psychiatry & Neurology Neurology
DX: R41.3 Other amnesia (principal)
CPT/HCPCS: 70551